=== PATIENT | female | born 2005 | race Caucasian/White ===

== ENCOUNTER 2024-05-17 08:39 | Inpatient (IN) ==
[2024-05-17 08:58] VITALS: BMI 25.5
[2024-05-17 09:20] LABS: BILIRUBIN,URINE NEGATIVE (NEGATIVE); BLOOD/HEMOGLOBIN,URINE NEGATIVE (NEGATIVE); GLUCOSE, URINE NEGATIVE (NEGATIVE); KETONES,URINE NEGATIVE (NEGATIVE); LEUKOCYTE ESTERASE ,URINE 1+ (NEGATIVE); NITRITES,URINE NEGATIVE (NEGATIVE); PROTEIN,URINE 1+ (NEGATIVE); UROBILINOGEN,URINE NORMAL (NORMAL)
[2024-05-17 09:21] LABS: APPEARANCE,URINE SLIGHTLY HAZY (CLEAR); COLOR,URINE PALE YELLOW (YELLOW)
[2024-05-17 09:28] LABS: AMNISURE ROM TEST NO MEMBRANES RUPTURE (NO RUPTURE)
[2024-05-17] MEDS ORDERED: REGLAN INJ 10 MG VIAL IVP PRN (09:49)
[2024-05-17] MEDS ORDERED: ZOFRAN INJ 4 MG VIAL IVP PRN (09:49)
[2024-05-17] MEDS: LR 1,000 ML IV 1,000 ML IV SCH (10:05)
[2024-05-17] MEDS: LR 1,000 ML IV 1,000 ML IV ONE ×2 (10:28→11:14)
[2024-05-17 10:30] LABS: BLOOD UREA NITROGEN 5 mg/dL (7-18); CARBON DIOXIDE 23.7 mmol/L (21-32); CHLORIDE 103 mmol/L (98-107); CREATININE 0.35 mg/dL (0.55-1.02); GLUCOSE 95 mg/dL (65-99); POTASSIUM 3.5 mmol/L (3.5-5.1); SODIUM 139 mmol/L (136-145); eGFR NON BLACK RACES > 60 (>60)
[2024-05-17] MEDS: OXYTOCIN 20 UNIT/1,000 ML-NS 20 UNIT/1,000 ML PLAST..BAG IV PRN (10:30)
[2024-05-17 10:32] LABS: BASOPHILS # (AUTO) 0.1 X10^3/uL (0.0-0.1); BASOPHILS % (AUTO) 0.6 % (0.2-1.0); EOSINOPHILS # (AUTO) 0.1 x10^3/uL (0.0-0.2); EOSINOPHILS % (AUTO) 0.6 % (0.9-2.9); LYMPHOCYTES # (AUTO) 1.5 X10^3/uL (1.3-2.9); LYMPHOCYTES % (AUTO) 13.6 % (21.0-51.0); MEAN CORPUSCULAR HEMOGLOBIN 31.2 pg (27.0-34.0); MEAN CORPUSCULAR HGB CONC 34.2 g/dL (33.0-35.0); MEAN CORPUSCULAR VOLUME 91.2 fL (80.0-100.0); MEAN PLATELET VOLUME 9.1 fL (7.4-11.0); MONOCYTES # (AUTO) 0.7 x10^3/uL (0.3-0.8); NEUTROPHILS % (AUTO) 79.2 % (42.0-75.0); PLATELET COUNT 228 X10^3/uL (150.0-450.0); RED BLOOD COUNT 4.17 X10^6/uL (3.5-5.4); WHITE BLOOD COUNT 11.3 X10^3/uL (3.6-10.0)
[2024-05-17] MEDS: NUBAIN INJ 20 MG AMP IVP PRN (10:35)
[2024-05-17 10:49] LABS: RAPID PLASMA REAGIN NONREACTIVE (NONREACTIVE)
[2024-05-17] MEDS: NUBAIN INJ 10 MG AMP ONE ×2 (11:13→16:19)
[2024-05-17] MEDS: PITOCIN ONE (11:23)
[2024-05-17] MEDS: FENTANYL VIAL INJ 100 mcg ONE (11:53)
[2024-05-17] MEDS: NAROPIN EPIDURAL 0.2% 100 ML ONE (11:56)
[2024-05-17] MEDS: XYLOCAINE 1 % (PLAIN) ONE (17:00)
[2024-05-17] MEDS: PITOCIN IVP ONE (17:10)
[2024-05-17] MEDS ORDERED: MOTRIN TAB 800 MG PO PRN (17:26)
[2024-05-17] MEDS: OXYTOCIN 20 UNIT/1,000 ML-NS 20 UNIT/1,000 ML PLAST..BAG IV SCH (18:03)
[2024-05-17] MEDS ORDERED: AMBIEN PO PRN (18:17)
[2024-05-17] MEDS ORDERED: MILK OF MAGNESIA PO PRN (18:17)
[2024-05-17] MEDS ORDERED: DERMOPLAST PAIN RELIEF SPRAY TOP PRN (18:17)
[2024-05-17] MEDS: ZOFRAN INJ 4 MG VIAL IVP PRN (20:52)
[2024-05-17] MEDS: ADACEL or BOOSTRIX TDaP VACCINE IM ONE (21:23)
[2024-05-18 06:52] LABS: HEMATOCRIT 31.6 % (36.0-47.0)
[2024-05-18] MEDS: PRENATAL PLUS PO SCH (09:26)
[2024-05-19 04:59] VITALS: RESP 18
--- NOTE | 2024-05-19 08:12 | W.DIS.FURT ---
Summary of Discharge Discharge Summary of Date Date of Exam: 05/19/24 Admission Date Date of Admission: 05/17/24 Admission Diagnosis Patient Problems (Updated 05/17/24 @ 10:01 by Valerie Lyons) Active labor (Acute) Hospital Course: Patient delivered via vaginal delivery. Her course was uncomplicated, and she was discharged home on day #2. Vital Signs: Vital Signs (72 hours) 05/17/24 08:40 05/17/24 10:00 05/17/24 10:07 Temperature 98.1 F Pulse Rate 94 H 71 79 Pulse Rate [Brachial] Respiratory Rate 20 Blood Pressure 137/70 Blood Pressure [Left Arm] O2 Sat by Pulse Oximetry 98 100 98 Oxygen Delivery Method Room Air 05/17/24 10:12 05/17/24 10:17 05/17/24 10:22 Temperature Pulse Rate 96 H 99 H 100 H Pulse Rate [Brachial] Respiratory Rate Blood Pressure Blood Pressure [Left Arm] O2 Sat by Pulse Oximetry 98 97 98 Oxygen Delivery Method 05/17/24 10:27 05/17/24 10:32 05/17/24 10:37 Temperature Pulse Rate 84 92 H 98 H Pulse Rate [Brachial] Respiratory Rate Blood Pressure Blood Pressure [Left Arm] O2 Sat by Pulse Oximetry 98 99 97 Oxygen Delivery Method 05/17/24 10:42 05/17/24 10:45 05/17/24 10:47 Temperature Pulse Rate 100 H 105 H 93 H Pulse Rate [Brachial] Respiratory Rate Blood Pressure 132/89 Blood Pressure [Left Arm] O2 Sat by Pulse Oximetry 98 96 Oxygen Delivery Method 05/17/24 10:52 05/17/24 10:57 05/17/24 11:00 Temperature Pulse Rate 85 90 93 H Pulse Rate [Brachial] Respiratory Rate Blood Pressure 129/78 Blood Pressure [Left Arm] O2 Sat by Pulse Oximetry 98 97 Oxygen Delivery Method 05/17/24 11:02 05/17/24 11:07 05/17/24 11:12 Temperature Pulse Rate 89 87 97 H Pulse Rate [Brachial] Respiratory Rate Blood Pressure Blood Pressure [Left Arm] O2 Sat by Pulse Oximetry 98 98 98 Oxygen Delivery Method 05/17/24 11:15 05/17/24 11:17 05/17/24 11:17 Temperature Pulse Rate 83 94 H 89 Pulse Rate [Brachial] Respiratory Rate Blood Pressure 131/76 149/86 Blood Pressure [Left Arm] O2 Sat by Pulse Oximetry 97 Oxygen Delivery Method 05/17/24 11:22 05/17/24 11:25 05/17/24 11:27 Temperature Pulse Rate 98 H 90 94 H Pulse Rate [Brachial] Respiratory Rate Blood Pressure Blood Pressure [Left Arm] O2 Sat by Pulse Oximetry 98 74 L 96 Oxygen Delivery Method 05/17/24 11:31 05/17/24 11:32 05/17/24 11:38 Temperature Pulse Rate 68 89 81 Pulse Rate [Brachial] Respiratory Rate Blood Pressure 145/75 132/65 Blood Pressure [Left Arm] O2 Sat by Pulse Oximetry 98 Oxygen Delivery Method 05/17/24 11:37 05/17/24 11:41 05/17/24 11:41 Temperature Pulse Rate 85 76 88 Pulse Rate [Brachial] Respiratory Rate Blood Pressure 130/68 Blood Pressure [Left Arm] O2 Sat by Pulse Oximetry 96 94 L Oxygen Delivery Method 05/17/24 11:42 05/17/24 11:43 05/17/24 11:47 Temperature Pulse Rate 76 86 85 Pulse Rate [Brachial] Respiratory Rate Blood Pressure 136/78 133/77 Blood Pressure [Left Arm] O2 Sat by Pulse Oximetry 97 Oxygen Delivery Method 05/17/24 11:47 05/17/24 11:50 05/17/24 11:52 Temperature Pulse Rate 82 92 H 87 Pulse Rate [Brachial] Respiratory Rate Blood Pressure 135/80 Blood Pressure [Left Arm] O2 Sat by Pulse Oximetry 97 100 Oxygen Delivery Method 05/17/24 11:53 05/17/24 11:56 05/17/24 11:57 Temperature Pulse Rate 75 68 73 Pulse Rate [Brachial] Respiratory Rate Blood Pressure 130/83 129/76 Blood Pressure [Left Arm] O2 Sat by Pulse Oximetry 98 Oxygen Delivery Method 05/17/24 11:59 05/17/24 12:02 05/17/24 12:04 Temperature Pulse Rate 71 70 75 Pulse Rate [Brachial] Respiratory Rate Blood Pressure 120/82 125/82 127/78 Blood Pressure [Left Arm] O2 Sat by Pulse Oximetry 98 Oxygen Delivery Method 05/17/24 12:08 05/17/24 12:07 05/17/24 12:10 Temperature Pulse Rate 71 73 72 Pulse Rate [Brachial] Respiratory Rate Blood Pressure 123/78 125/79 Blood Pressure [Left Arm] O2 Sat by Pulse Oximetry 100 Oxygen Delivery Method 05/17/24 12:12 05/17/24 12:13 05/17/24 12:17 Temperature Pulse Rate 71 83 82 Pulse Rate [Brachial] Respiratory Rate Blood Pressure 131/80 134/87 Blood Pressure [Left Arm] O2 Sat by Pulse Oximetry 100 Oxygen Delivery Method 05/17/24 12:17 05/17/24 12:20 05/17/24 12:22 Temperature Pulse Rate 80 68 80 Pulse Rate [Brachial] Respiratory Rate Blood Pressure 140/69 Blood Pressure [Left Arm] O2 Sat by Pulse Oximetry 100 100 Oxygen Delivery Method 05/17/24 12:23 05/17/24 12:26 05/17/24 12:00 Temperature 98.4 F Pulse Rate 73 75 Pulse Rate [Brachial] Respiratory Rate 18 Blood Pressure 133/70 134/67 Blood Pressure [Left Arm] O2 Sat by Pulse Oximetry Oxygen Delivery Method 05/17/24 12:27 05/17/24 12:29 05/17/24 12:32 Temperature Pulse Rate 83 78 85 Pulse Rate [Brachial] Respiratory Rate Blood Pressure 142/68 127/71 Blood Pressure [Left Arm] O2 Sat by Pulse Oximetry 99 100 Oxygen Delivery Method 05/17/24 12:34 05/17/24 12:37 05/17/24 12:38 Temperature Pulse Rate 77 84 78 Pulse Rate [Brachial] Respiratory Rate Blood Pressure 133/82 147/77 Blood Pressure [Left Arm] O2 Sat by Pulse Oximetry 94 L Oxygen Delivery Method 05/17/24 12:41 05/17/24 12:42 05/17/24 12:44 Temperature Pulse Rate 68 141 H 90 Pulse Rate [Brachial] Respiratory Rate Blood Pressure 137/65 Blood Pressure [Left Arm] O2 Sat by Pulse Oximetry 85 L 93 L Oxygen Delivery Method 05/17/24 12:58 05/17/24 13:13 05/17/24 13:29 Temperature Pulse Rate 66 76 64 Pulse Rate [Brachial] Respiratory Rate Blood Pressure 153/82 139/64 128/79 Blood Pressure [Left Arm] O2 Sat by Pulse Oximetry Oxygen Delivery Method 05/17/24 13:43 05/17/24 13:58 05/17/24 14:12 Temperature Pulse Rate 75 71 69 Pulse Rate [Brachial] Respiratory Rate Blood Pressure 119/80 117/61 130/60 Blood Pressure [Left Arm] O2 Sat by Pulse Oximetry Oxygen Delivery Method 05/17/24 14:28 05/17/24 14:42 05/17/24 14:57 Temperature Pulse Rate 79 85 80 Pulse Rate [Brachial] Respiratory Rate Blood Pressure 123/63 128/65 116/57 Blood Pressure [Left Arm] O2 Sat by Pulse Oximetry Oxygen Delivery Method 05/17/24 15:14 05/17/24 15:29 05/17/24 15:42 Temperature Pulse Rate 93 H 100 H 96 H Pulse Rate [Brachial] Respiratory Rate Blood Pressure 131/69 117/74 124/81 Blood Pressure [Left Arm] O2 Sat by Pulse Oximetry Oxygen Delivery Method 05/17/24 15:59 05/17/24 16:14 05/17/24 16:28 Temperature Pulse Rate 96 H 96 H 71 Pulse Rate [Brachial] Respiratory Rate Blood Pressure 126/85 140/88 141/88 Blood Pressure [Left Arm] O2 Sat by Pulse Oximetry Oxygen Delivery Method 05/17/24 16:43 05/17/24 16:58 05/17/24 17:13 Temperature Pulse Rate 84 86 114 H Pulse Rate [Brachial] Respiratory Rate Blood Pressure 141/85 148/89 133/66 Blood Pressure [Left Arm] O2 Sat by Pulse Oximetry Oxygen Delivery Method 05/17/24 17:27 05/17/24 17:42 05/17/24 17:57 Temperature Pulse Rate 78 90 80 Pulse Rate [Brachial] Respiratory Rate Blood Pressure 127/67 120/59 111/59 Blood Pressure [Left Arm] O2 Sat by Pulse Oximetry Oxygen Delivery Method 05/17/24 18:12 05/17/24 18:13 05/17/24 10:16 Temperature Pulse Rate 71 73 Pulse Rate [Brachial] Respiratory Rate Blood Pressure 105/55 103/64 Blood Pressure [Left Arm] O2 Sat by Pulse Oximetry Oxygen Delivery Method Room Air 05/17/24 17:15 05/17/24 17:30 05/17/24 17:45 Temperature 98.4 F Pulse Rate 78 100 H 90 Pulse Rate [Brachial] Respiratory Rate 18 18 18 Blood Pressure 127/67 133/66 120/50 Blood Pressure [Left Arm] O2 Sat by Pulse Oximetry Oxygen Delivery Method 05/17/24 18:16 05/17/24 18:00 05/17/24 18:30 Temperature 98.0 F Pulse Rate 73 80 78 Pulse Rate [Brachial] Respiratory Rate 17 17 20 Blood Pressure 105/44 111/59 115/64 Blood Pressure [Left Arm] O2 Sat by Pulse Oximetry Oxygen Delivery Method 05/17/24 19:00 05/17/24 18:08 05/17/24 18:45 Temperature 98.1 F Pulse Rate 85 Pulse Rate [Brachial] Respiratory Rate 19 Blood Pressure 114/59 Blood Pressure [Left Arm] O2 Sat by Pulse Oximetry Oxygen Delivery Method Room Air Room Air 05/17/24 19:00 05/17/24 19:15 05/17/24 19:30 Temperature 97.9 F 97.9 F 98.3 F Pulse Rate 80 86 83 Pulse Rate [Brachial] Respiratory Rate 18 18 19 Blood Pressure 105/55 112/59 122/58 Blood Pressure [Left Arm] O2 Sat by Pulse Oximetry Oxygen Delivery Method 05/17/24 20:30 05/17/24 21:30 05/17/24 22:30 Temperature 97.8 F 97.8 F 97.9 F Pulse Rate 81 80 89 Pulse Rate [Brachial] Respiratory Rate 21 21 21 Blood Pressure 114/60 112/58 123/63 Blood Pressure [Left Arm] O2 Sat by Pulse Oximetry Oxygen Delivery Method 05/18/24 00:30 05/18/24 05:26 05/18/24 07:00 Temperature 98.2 F 98.4 F Pulse Rate 77 Pulse Rate [Brachial] 69 Respiratory Rate 21 18 Blood Pressure 110/62 Blood Pressure [Left Arm] 107/53 O2 Sat by Pulse Oximetry 99 Oxygen Delivery Method Room Air 05/18/24 08:00 05/18/24 12:00 05/18/24 16:00 Temperature 98.6 F 98.4 F 98.0 F Pulse Rate Pulse Rate [Brachial] 97 H 77 82 Respiratory Rate 19 19 18 Blood Pressure Blood Pressure [Left Arm] 107/53 107/55 126/70 O2 Sat by Pulse Oximetry 97 99 98 Oxygen Delivery Method 05/18/24 19:00 05/18/24 20:00 05/19/24 00:00 Temperature 98.2 F 98.5 F Pulse Rate Pulse Rate [Brachial] 67 69 Respiratory Rate 17 16 Blood Pressure Blood Pressure [Left Arm] 114/59 106/53 O2 Sat by Pulse Oximetry 98 98 Oxygen Delivery Method Room Air Room Air Room Air 05/19/24 04:00 05/19/24 07:00 Temperature 98.0 F Pulse Rate Pulse Rate [Brachial] 69 Respiratory Rate 18 Blood Pressure Blood Pressure [Left Arm] 96/55 O2 Sat by Pulse Oximetry 96 Oxygen Delivery Method Room Air Room Air Labs: Laboratory Last Values WBC 11.3 X10^3/uL (3.6-10.0) H 05/17/24 10:13 RBC 4.17 X10^6/uL (3.5-5.4) 05/17/24 10:13 Hgb 11.0 g/dL (12.0-16.0) L D 05/18/24 05:20 Hct 31.6 % (36.0-47.0) L 05/18/24 05:20 MCV 91.2 fL (80.0-100.0) 05/17/24 10:13 MCH 31.2 pg (27.0-34.0) 05/17/24 10:13 MCHC 34.2 g/dL (33.0-35.0) 05/17/24 10:13 RDW 15.0 % (11.6-16.5) 05/17/24 10:13 Plt Count 228 X10^3/uL (150.0-450.0) 05/17/24 10:13 MPV 9.1 fL (7.4-11.0) 05/17/24 10:13 Neut % (Auto) 79.2 % (42.0-75.0) H 05/17/24 10:13 Lymph % (Auto) 13.6 % (21.0-51.0) L 05/17/24 10:13 [place] % (Auto) 6.0 % (0.0-13.0) 05/17/24 10:13 Eos % (Auto) 0.6 % (0.9-2.9) L 05/17/24 10:13 Baso % (Auto) 0.6 % (0.2-1.0) 05/17/24 10:13 Neut # (Auto) 9.0 x10^3/uL (2.2-4.8) H 05/17/24 10:13 Lymph # (Auto) 1.5 X10^3/uL (1.3-2.9) 05/17/24 10:13 [place] # (Auto) 0.7 x10^3/uL (0.3-0.8) 05/17/24 10:13 Eos # (Auto) 0.1 x10^3/uL (0.0-0.2) 05/17/24 10:13 Baso # (Auto) 0.1 X10^3/uL (0.0-0.1) 05/17/24 10:13 Absolute Nucleated RBC 0.1 /100WBC 05/17/24 10:13 Sodium 139 mmol/L (136-145) 05/17/24 10:13 Corrected Sodium TNP 05/17/24 10:13 Potassium 3.5 mmol/L (3.5-5.1) 05/17/24 10:13 Chloride 103 mmol/L (98-107) 05/17/24 10:13 Carbon Dioxide 23.7 mmol/L (21-32) 05/17/24 10:13 BUN 5 mg/dL (7-18) L 05/17/24 10:13 Creatinine 0.35 mg/dL (0.55-1.02) L 05/17/24 10:13 Est GFR (MDRD) Af Amer > 60 (>60) 05/17/24 10:13 Est GFR (MDRD) Non-Af > 60 (>60) 05/17/24 10:13 Glucose 95 mg/dL (65-99) 05/17/24 10:13 Calcium 9.0 mg/dL (8.5-10.1) 05/17/24 10:13 Specimen Type Clean catch urine 05/17/24 08:55 Urine Color Pale yellow (YELLOW) 05/17/24 08:55 Urine Appearance Slightly hazy (CLEAR) 05/17/24 08:55 Urine pH 6.0 (5.0 - 8.0) 05/17/24 08:55 Ur Specific Umpire 1.025 (1.000-1.030) 05/17/24 08:55 Urine Protein 1+ (NEGATIVE) 05/17/24 08:55 Urine Glucose (UA) Negative (NEGATIVE) 05/17/24 08:55 Urine Ketones Negative (NEGATIVE) 05/17/24 08:55 Urine Blood Negative (NEGATIVE) 05/17/24 08:55 Urine Nitrite Negative (NEGATIVE) 05/17/24 08:55 Urine Bilirubin Negative (NEGATIVE) 05/17/24 08:55 Urine Urobilinogen Normal (NORMAL) 05/17/24 08:55 Ur Leukocyte Esterase 1+ (NEGATIVE) 05/17/24 08:55 Placental [id number] No membranes rupture (NO RUPTURE) 05/17/24 08:55 Urine Opiates Screen Negative (NEG=<300) 05/17/24 08:55 Urine Methadone Screen Negative (NEG=<300) 05/17/24 08:55 Ur Barbiturates Screen Negative (NEG=<200) 05/17/24 08:55 Ur Phencyclidine Scrn Negative (NEG=<25) 05/17/24 08:55 Ur Amphetamines Screen Negative (NEG=<1000) 05/17/24 08:55 U Benzodiazepines Scrn Negative (NEG=<200) 05/17/24 08:55 Urine Cocaine Screen Negative (NEG=<300) 05/17/24 08:55 U Marijuana (THC) Screen Negative (NEG=<50) 05/17/24 08:55 RPR Nonreactive (NONREACTIVE) 05/17/24 10:13 HIV 1&2 Antibody Non reactive (NONREACTIVE) 05/17/24 10:13 HIV P24 Antigen Non reactive (NONREACTIVE) 05/17/24 10:13 Blood Type A POSITIVE 05/17/24 10:13 Antibody Screen Negative 05/17/24 10:13 Reason For Visit: LABOR AT TERM Discharge Date Discharge Date: 05/19/24 Discharge Diagnosis All Active Problems (Updated 05/17/24 @ 10:01 by Valerie Lyons) Active labor (Acute) Uncertain dates, antepartum (Acute) Plan of Treatment: Continue with present treatment and follow up plan. Pt is to keep follow up appointment as instructed and take medications as ordered. Discharge Medications Discharge Medications: No Known Allergies Allergy (Verified 05/17/24 08:57) CONTINUE taking the following medications vits [id number] fum 28 mg iron-folic acid 800 mcg tablet (Classic ) 1 tab PO DAILY 05/17/24 [History] New Prescriptions ibuprofen 800 mg tablet 800 mg PO Q8H PRN 30 days #30 tabs 05/19/24 [Rx] Discharge Disposition Assessment: Status post normal vaginal delivery. Discharge Plan Discharge Plan Hospital Course: Patient delivered via vaginal delivery. Her course was uncomplicated, and she was discharged home on day #2. Patient Disposition: 01 HOME, SELF-CARE Condition: Stable Health Concerns: Post Hospitalization: new medications and changes needed to prevent readmission or further decline. Pt educated and given instructions on all concerns. Plan of Treatment: Continue with present treatment and follow up plan. Pt is to keep follow up appointment as instructed and take medications as ordered. Assessment: Status post normal vaginal delivery. Prescription drug monitoring program results: PDMP was not reviewed Prescriptions: New ibuprofen 800 mg Tablet 800 mg PO Q8H PRN30 Days Qty: 30 1RF Discontinued Classic 28 mg iron- 800 mcg tablet 1 tab PO DAILY MDD 1 Follow ups/Referrals Follow ups/Referrals: Saloni Sherman MD [Primary Care Provider] - 5 WEEKS ( check) Instructions Instructions: Baby Blues, and Breast Care, Vaginal Delivery, Care After, Care of a Perineal Tear, Care After Vaginal Delivery Stand Alone Forms: Excuse From Work or School, Find Help Web Site, Post Hospital Follow Up Care
[2024-05-19 12:20] VITALS: BP 119/66; PULSE 75; TEMP 97.9; O2SAT 97
== END 2024-05-19 13:15 | disposition home or self-care (01) | DRG 807 ==
LOC: ER 08:39 → LD 09:53 → MED/SURG 18:17
PROVIDERS: ADMIT Obstetrics & Gynecology Obstetrics; ATTEND Obstetrics & Gynecology
DX: Z37.0 Single live birth; O26.893 Other specified pregnancy related conditions, third trimester; Z3A.39 39 weeks gestation of pregnancy; O70.1 Second degree perineal laceration during delivery